=== PATIENT | female | born 1985 | race Asian ===

== ENCOUNTER 2024-02-21 05:50 | Inpatient (IN) | payer OTHER ==
[2024-02-21] MEDS: ELECTROLYTE-148 SOLN 500 ML IV SCH (06:35)
[2024-02-21 07:12] VITALS: BMI 39.4
[2024-02-21] MEDS: ELECTROLYTE-148 SOLN 500 ML IV ONE (07:15)
[2024-02-21] MEDS ORDERED: ACETAMINOPHEN 325 MG TABLET (FP) PO PRN ×2 (07:26→09:42)
[2024-02-21] MEDS ORDERED: IBUPROFEN 600 MG TABLET (FP) PO PRN (07:26)
[2024-02-21] MEDS ORDERED: ONDANSETRON 4 MG/2 ML VIAL IVPUSH PRN (07:26)
[2024-02-21] MEDS: CITRIC ACID/SODIUM CITRATE 30 ML UNIT-DOSE CUP PO ONE (08:00)
[2024-02-21] MEDS ORDERED: morphine SULFATE/PF 1 MG/2 ML (2cc Syringe - QUVA) ONE (08:10)
[2024-02-21] MEDS ORDERED: FENTANYL CITRATE/PF 50 MCG/ML VIAL ONE (08:10)
[2024-02-21] MEDS: ELECTROLYTE-148 SOLN 1,000 ML IV SCH (08:30)
[2024-02-21] MEDS ORDERED: METHYLERGONOVINE MALEATE 0.2 MG/1 ML AMP IM PRN (09:42)
[2024-02-21] MEDS ORDERED: IBUPROFEN 800 MG/8 ML IJ IVPB PRN (09:42)
[2024-02-21] MEDS ORDERED: SENNOSIDES/DOCUSATE COMBO (SENNA PLUS) TABLET (UD) PO PRN (09:42)
[2024-02-21] MEDS ORDERED: ACETAMINOPHEN 1000 MG/100 ML BAG IVPB PRN (09:45)
[2024-02-21] MEDS: OXYTOCIN 20 UNITS in 0.9% NS 20 UNIT/1,000 ML INFUS.BAG IV SCH (10:00)
[2024-02-21 10:43] VITALS: RESP 18
[2024-02-21] MEDS: FERROUS SO4 325 MG TABLET (FP) PO SCH (12:24)
[2024-02-21] MEDS: PRENATAL VITAMINS W/ FOLIC ACID TABLET (FP) PO SCH (12:25)
[2024-02-21] MEDS ORDERED: oxyCODONE HCL 5 MG TABLET PO PRN ×2 (21:42)
[2024-02-22] MEDS: IBUPROFEN 600 MG TABLET (FP) PO PRN (05:46)
[2024-02-22] MEDS: SIMETHICONE 80 MG TAB.CHEW (FP) PO PRN (05:46)
[2024-02-22] MEDS: ELECTROLYTE-148 SOLN 1,000 ML IV SCH (07:30)
[2024-02-22 07:58] LABS: BASO % 0.3 % (0-2.0); EOS % 0.7 % (0-4.5); HEMATOCRIT 39.4 % (32.4-45.2); HEMOGLOBIN 12.8 GM/dL (10.7-15.3); LYMPH % 27.7 % (8-40); MCH 24.9 pg (25.7-33.7); MCHC 32.4 g/dl (32.0-36.0); MEAN CELL VOLUME 76.7 fl (80-96); MEAN PLT VOLUME 7.3 fl (7.5-11.1); MONO % 6.9 % (3.8-10.2); NEUT % 64.4 % (42.8-82.8); PLATELET COUNT 308 10^3/uL (134-434); RBC 5.13 M/mm3 (3.60-5.2); RDW 16.1 % (11.6-15.6); WHITE BLOOD COUNT 11.6 K/mm3 (4.0-10.0)
[2024-02-22] MEDS ORDERED: BISACODYL 10 MG SUPP.RECT RC PRN (09:42)
[2024-02-23 09:11] VITALS: BP 104/62; PULSE 77; TEMP 98
== END 2024-02-23 18:05 | disposition home or self-care (01) | DRG 540 ==
LOC: JLDR 05:50 → J3W 12:05
PROVIDERS: ADMIT Obstetrics & Gynecology; ATTEND Obstetrics & Gynecology
PROC: 10D00Z1 Extraction of Products of Conception, Low, Open Approach (ICD-10-PCS; principal; 2024-02-21)
DX: O32.2XX0 Maternal care for transverse and oblique lie, not applicable or unspecified (principal); O24.429 Gestational diabetes mellitus in childbirth, unspecified control; O40.3XX0 Polyhydramnios, third trimester, not applicable or unspecified; O69.81X0 Labor and delivery complicated by cord around neck, without compression, not applicable or unspecified; Z3A.38 38 weeks gestation of pregnancy; Z37.0 Single live birth
CPT/HCPCS: 36415; 80053; 82962; 85025; 85610; 85730; 86704; 86705; 86780; 86803; 86850; 86900; 86901; 87340; 87389; 87517; 88307-TC; 94010